=== PATIENT | male | born 2000 | race African-American/Black ===

== ENCOUNTER 2020-06-26 09:48 | Emergency (ER) | payer OTHER ==
[~2020-06-26] VITALS: Ht 170.2 cm; Wt 77.1 kg
[2020-06-26] MEDS ORDERED: NOHOMEMEDICATIONS (09:58)
[2020-06-26 11:22] VITALS: BP 125/86
== END 2020-06-26 11:22 ==
LOC: ER 09:48
DX: J02.0 Streptococcal pharyngitis (principal)

== ENCOUNTER 2020-09-05 17:37 | Emergency (ER) | payer OTHER ==
[~2020-09-05] VITALS: Ht 170.2 cm; Wt 72.6 kg
[~2020-09-05 17:37] MED LIST: NOHOMEMEDICATIONS
[2020-09-05] MEDS ORDERED: TRAMADOL 50 MG50 MG PO (20:10)
[2020-09-05 21:00] VITALS: BP 110/55
== END 2020-09-05 21:00 | disposition home or self-care (01) ==
LOC: ER 17:37
DX: S05.01XA Injury of conjunctiva and corneal abrasion without foreign body, right eye, initial encounter (principal); H20.00 Unspecified acute and subacute iridocyclitis; W51.XXXA Accidental striking against or bumped into by another person, initial encounter; Y93.89 Activity, other specified; Y92.89 Other specified places as the place of occurrence of the external cause; Y99.8 Other external cause status